=== PATIENT | female | born 1995 | race Caucasian/White ===

== ENCOUNTER 2018-01-01 16:23 | Emergency (ER) | payer SELFPAY ==
[~2018-01-01] VITALS: Ht 165.1 cm; Wt 82.1 kg
[2018-01-01 17:18] VITALS: BP 157/92
--- NOTE | 2018-01-01 17:32 | NUR ---
PER PATIENT, STARTED VAG. AT 1600 TODAY WITH ABD. PAIN 14 WKS. 4DAYS GEST.
--- NOTE | 2018-01-01 17:32 | NUR ---
PATIENT AMBULATED TO BED #3
--- NOTE | 2018-01-01 17:40 | NUR ---
PT. CAME INTO ED DUE TO VAGINAL BLEEDING SINCE TODAY. PT.STATES "SUDDENLY I STARTED BLEEDING THIS AFTERNOON AND DECIDED TO COME IN IM 12 WEEKS ". PT. AAOX4, PT. STATES SHE HAS 6/10 PAIN IN LOWER ABD. RR EVEN AND UNLABORED. DENIES N/V/D. DENIES SOB, CHEST PAIN. PT. STATES BLEEDING IS "A LITTLE BIT". BOYFRIEND AT BEDSIDE. WILL CONTINUE TO MONITOR.
[2018-01-01 18:00] LABS: APPEARANCE,URINE CLEAR (CLEAR); BILIRUBIN,URINE NEGATIVE (NEGATIVE); BLOOD, URINE 3+ (NEGATIVE); COLOR,URINE YELLOW (YELLOW); LEUKOCYTE ESTERASE ,URINE NEGATIVE (NEGATIVE); NITRITE, URINE NEGATIVE (NEGATIVE); PH,URINE 6.5 (5.0-9.0); UGLUCOSE NEGATIVE (NEGATIVE)
[2018-01-01 18:16] LABS: RBC,URINE 50-80 /HPF (0-5); WBC,URINE 0-5 (RARE) /HPF (0-5)
[2018-01-01 18:25] LABS: BASOPHILS # (AUTO) 0.1 K/uL (0.00-0.22); BASOPHILS % (AUTO) 0.7 % (0.0-2.0); EOSINOPHILS % (AUTO) 8.8 % (0.0-4.0); HEMATOCRIT 41.3 % (36-48); HEMOGLOBIN 13.2 g/dL (12.0-16.0); LYMPHOCYTES # (AUTO) 2.3 K/uL (2.5-16.5); LYMPHOCYTES % (AUTO) 20.4 % (20.5-51.1); MEAN CORPUSCULAR HEMOGLOBIN 27 pg (27-31); MEAN CORPUSCULAR HGB CONC 32 g/dL (33-37); MEAN CORPUSCULAR VOLUME 84.1 fL (80-94); MONOCYTES # (AUTO) 0.5 K/uL (0.8-1.0); MONOCYTES % (AUTO) 4.8 % (1.7-9.3); NEUTROPHILS # (AUTO) 7.4 K/uL (1.8-7.7); NEUTROPHILS % (AUTO) 65.3 % (42.2-75.2); PLATELET COUNT (AUTO) 355 K/uL (140-450); RED BLOOD CELL COUNT(AUTO) 4.91 MIL/uL (4.20-5.40); RED CELL DISTRIBUTION WIDTH 13.4 % (11.6-13.7); WHITE BLOOD COUNT (AUTO) 11.4 K/uL (4.8-10.8)
--- NOTE | 2018-01-01 18:40 | NUR ---
PT. AAOX4 WITH BOYFRIEND AT BEDSIDE, RR EVEN AND UNLABORED, VSS, BED IN LOWEST POSITION WILL CONTINUE TO MONITOR.
[2018-01-01 18:50] VITALS: BP 146/86
--- NOTE | 2018-01-01 18:50 | NUR ---
Patient discharged with v/s stable. Written and verbal after care instructions given and explained. Patient verbalized understanding. Ambulatory with steady gait. All questions addressed prior to discharge. Advised to follow up with PMD.
== END 2018-01-01 18:50 | disposition home or self-care (01) ==
LOC: MED 16:23
DX: O20.0 Threatened abortion (principal); Z3A.01 Less than 8 weeks gestation of pregnancy
CPT/HCPCS: 36415; 76817; 81001; 81025; 84702; 85025; 86900; 86901; 99285; Q0092